=== PATIENT | male | born 1950 | race Hispanic/Latino ===

== ENCOUNTER → 2018-05-19 | Day surgery (SDC) | payer MEDICARE ==
[2018-05-16 11:26] LABS: BASOPHILS % 0.7 % (0.0-1.0); EOSINOPHILS # (AUTO) 0.1 (0.0-0.4); EOSINOPHILS % 1.7 % (0.0-6.0); HEMOGLOBIN 15.1 g/dL (14.0-18.0); LYMPHOCYTES # (AUTO) 1.4 (1.0-3.2); LYMPHOCYTES % 26.4 % (18.0-39.1); MEAN CORPUSCULAR HEMOGLOBIN 32.9 pg (28-32); MEAN CORPUSCULAR HGB CONC 35.1 g/dL (31-35); MEAN CORPUSCULAR VOLUME 93.7 fL (81-99); MONOCYTES # (AUTO) 0.4 (0.2-0.8); MONOCYTES % 7.9 % (4.4-11.3); NEUTROPHILS # (AUTO) 3.4 (2.1-6.9); NEUTROPHILS % 62.9 % (38.7-80.0); PLATELET COUNT 164 x10e3/uL (140-360); RED BLOOD COUNT 4.59 x10e6/uL (4.3-5.7); RED CELL DISTRIBUTION WIDTH 13.2 % (11.7-14.4)
[~2018-05-19] MED LIST: ATORVASTATIN CA20 MG PO; FENTANYL CITRATE/PF 100MCG/2 ML INJ ONE; FLOMAX0.4 MG PO; LIDOCAINE HCL 2% LOCAL INJ 5 ML SDV VIAL INJ ONE; MIDAZOLAM HCL 2 MG/2 ML VIAL ONE; PROPOFOL IV EMULSION 10 MG/ML 50 ML VIAL ONE; VIT D2 PO
[2018-05-19 07:50] VITALS: BP 118/87
== END | disposition home or self-care (01) ==
LOC: OR 05:19
PROVIDERS: ATTEND Internal Medicine Gastroenterology
DX: Z12.11 Encounter for screening for malignant neoplasm of colon (principal); D12.2 Benign neoplasm of ascending colon; D12.3 Benign neoplasm of transverse colon; K64.8 Other hemorrhoids; Z71.3 Dietary counseling and surveillance; E66.9 Obesity, unspecified; Z01.810 Encounter for preprocedural cardiovascular examination; Z01.812 Encounter for preprocedural laboratory examination; Z68.30 Body mass index [BMI] 30.0-30.9, adult
CPT/HCPCS: 36415; 45385; 85025; 93005; J2001; J2250

== ENCOUNTER → 2018-07-08 | Outpatient (CLI) | payer MEDICARE ==
[~2018-07-08] MED LIST changes: -FENTANYL CITRATE/PF 100MCG/2 ML INJ ONE; +IOPAMIDOL 370 MG/ML 200 ML INFUS..BTL INJ ONE; -LIDOCAINE HCL 2% LOCAL INJ 5 ML SDV VIAL INJ ONE; -MIDAZOLAM HCL 2 MG/2 ML VIAL ONE; -PROPOFOL IV EMULSION 10 MG/ML 50 ML VIAL ONE; +SODIUM CHLORIDE 0.9% 100 ML 100 ML ONE; +SODIUM CHLORIDE 0.9% 50ML 50 ML ONE
[2018-07-08 13:21] LABS: BLOOD UREA NITROGEN 16 mg/dL (7-26); BUN/CREATININE RATIO 19 (6-25); CREATININE, SERUM 0.85 mg/dL (0.72-1.25); EST GLOMERULAR FILTRATION RATE > 60 ML/MIN (60-)
--- NOTE | 2018-07-08 15:23 | Diagnostic Imaging Report ---
EXAM: CT Abdomen and Pelvis WITHOUT and WITH contrast INDICATION: \[id number] \S\[id number] \S\ASYMPTOMATIC MICROSCOPIC HEMATURIA COMPARISON: None. TECHNIQUE: Abdomen and pelvis were scanned utilizing a multidetector helical scanner from the lung base to the ischial tuberosities before and after administration of IV contrast. Coronal and sagittal reformations were obtained. Routine protocol was performed. Scan was performed when during portal venous phase. IV CONTRAST: 150 mL of Isovue-370 ORAL CONTRAST: Water RADIATION DOSE: Total DLP: 1620.5 mGy*cm Estimated effective dose: DLP x 0.015 mSv COMPLICATIONS: None FINDINGS: LINES and TUBES: None. LOWER CHEST: Right middle lobe calcified granuloma. Indeterminate 2 mm solid nodule in the right lower lobe, no follow-up needed. if high risk, CT chest can be obtained in 12 months. HEPATOBILIARY: No focal hepatic lesions. No biliary ductal dilation. GALLBLADDER: No radio-opaque stones or sludge. No wall thickening. SPLEEN: No splenomegaly. PANCREAS: No focal masses or ductal dilatation. ADRENALS: No adrenal nodules KIDNEYS/URETERS: Kidneys: Normal appearance bilaterally. No hydronephrosis or perinephric stranding. Cyst: None. Mass: None. Stones: None. Upper collecting systems: No irregularities or filling defects. Ureters: Fully opacified and normal in appearance. Bladder: No mass or filling defects. Mild protrusion of the prostate into the base of the urinary bladder. GI TRACT: No abnormal distention, wall thickening, or evidence of bowel obstruction. Appendix is normal. PELVIC ORGANS/BLADDER: The prostate is prominent with lobulated appearance especially in the anterior aspect, measuring 4.0 x 4.4 cm. LYMPH NODES: No lymphadenopathy. VESSELS: Mild atherosclerotic calcifications of the abdominal aorta without aneurysm. PERITONEUM / RETROPERITONEUM: No free air or fluid. BONES: Mild multilevel degenerative changes of the lumbar spine. SOFT TISSUES: Moderate size fat-containing left inguinal hernia. IMPRESSION: 1. Mildly heterogeneous and lobulated appearance of the prostate. Recommend further workup for hyperplasia and/or neoplasm. 2. Otherwise, unremarkable CT of the abdomen and pelvis. Specifically, no nephrolithiasis, hydronephrosis, or renal masses. Signed by: Dr. Randa Yates M.D. on 07/08/2018 3:20 PM
== END ==
LOC: CT 12:19
PROVIDERS: ATTEND Urology
DX: R31.21 Asymptomatic microscopic hematuria (principal)
CPT/HCPCS: 36415; 74178; 82565; 84520; Q9967

== ENCOUNTER → 2018-07-13 | Day surgery (SDC) | payer MEDICARE ==
[2018-07-12 11:38] LABS: BASOPHILS % 0.6 % (0.0-1.0); EOSINOPHILS # (AUTO) 0.1 (0.0-0.4); EOSINOPHILS % 1.5 % (0.0-6.0); HEMATOCRIT 47.1 % (38.2-49.6); HEMOGLOBIN 16.2 g/dL (14.0-18.0); LYMPHOCYTES # (AUTO) 1.4 (1.0-3.2); LYMPHOCYTES % 26.5 % (18.0-39.1); MEAN CORPUSCULAR HEMOGLOBIN 32.3 pg (28-32); MEAN CORPUSCULAR HGB CONC 34.4 g/dL (31-35); MEAN CORPUSCULAR VOLUME 93.8 fL (81-99); MONOCYTES # (AUTO) 0.4 (0.2-0.8); MONOCYTES % 8.2 % (4.4-11.3); NEUTROPHILS # (AUTO) 3.3 (2.1-6.9); NEUTROPHILS % 62.8 % (38.7-80.0); PLATELET COUNT 158 x10e3/uL (140-360); RED BLOOD COUNT 5.02 x10e6/uL (4.3-5.7); RED CELL DISTRIBUTION WIDTH 12.7 % (11.7-14.4)
--- NOTE | 2018-07-12 12:13 | Diagnostic Imaging Report ---
EXAMINATION: CHEST 2 VIEWS INDICATION: Enlarged prostate. Preop for surgery COMPARISON: CT scan 07/08/2018 FINDINGS: TUBES and LINES: None. LUNGS: Lungs are well inflated. Calcified granuloma in the right lower lung. There is no evidence of pneumonia or pulmonary edema. PLEURA: No pleural effusion or pneumothorax. HEART AND MEDIASTINUM: The cardiomediastinal silhouette is unremarkable. BONES AND SOFT TISSUES: No acute osseous lesion. Soft tissues are unremarkable. UPPER ABDOMEN: No free air under the diaphragm. IMPRESSION: No acute thoracic abnormality. Signed by: Dr. Dany Munguia M.D. on 07/12/2018 12:10 PM
[~2018-07-13] MED LIST changes: +CEFTRIAXONE SOD 1 GM VIAL ONE; +DESFLURANE 240 ML BTL INH ONE; +DEXAMETHASONE SOD PHOS INJ 4 MG/ML VIAL ONE; +EPHEDRINE SULFATE INJ 50 MG/10 ML SYR ONE; +FENTANYL CITRATE/PF 100MCG/2 ML INJ ONE; +GENTAMICIN 80MG/NS 100 ML 200 ML IV ONE; -IOPAMIDOL 370 MG/ML 200 ML INFUS..BTL INJ ONE; +IOPAMIDOL 610MG/1ML 300 MG/ML VIAL IV ONE; +LIDOCAINE HCL 2% LOCAL INJ 5 ML SDV VIAL INJ ONE; +MIDAZOLAM HCL 2 MG/2 ML VIAL ONE; +ONDANSETRON HCL INJ 2 MG/ML VIAL ONE; +PROPOFOL IV EMULSION 10 MG/ML 20 ML VIAL ONE; -SODIUM CHLORIDE 0.9% 100 ML 100 ML ONE; -SODIUM CHLORIDE 0.9% 50ML 50 ML ONE
--- OUTSIDE RECORDS SUMMARY | 2018-07-13 06:50 | XMS REPORT ---
Author [facility] Address Unknown Phone Unavailable Care Team Providers Care Cellar Packer Name Role Phone BRENDON REYNA Unavailable Unavailable Problems This patient has no known problems. Allergies, Adverse Reactions, Alerts This patient has no known allergies or adverse reactions. Medications This patient has no known medications. Results Test Description Test Time Test Comments Text Results Atomic Results Result Comments CHEST 2 VIEWS 2018-07-12 12:08:00 [place] [address] Patient Name: TONYA WARD MR #: [id number] : 1950 Age/Sex: 67/M Req #: [id number] [facility] Physician: Ordered by: BRENDON REYNA MD Report #: [id number] Location: OR Room/Bed: Procedure: [id number] DX/CHEST 2 VIEWS Exam Date: 07/12/18 Exam Time: 1125 REPORT STATUS: Signed EXAMINATION: CHEST 2 VIEWS INDICATION: Enlarged prostate. Preop for surgery COMPARISON: CT scan 07/08/2018 FINDINGS: TUBES and LINES: None. LUNGS: Lungs are well inflated. Calcified granuloma in the right lower lung. There is no evidence of pneumonia or pulmonary edema. PLEURA: No pleural effusion or pneumothorax. HEART AND MEDIASTINUM: The cardiomediastinal silhouette is unremarkable. BONES AND SOFT TISSUES: No acute osseous lesion. Soft tissues are unremarkable. UPPER ABDOMEN: No free air under the diaphragm. IMPRESSION: No acute thoracic abnormality. Signed by: Dr. Dany Munguia M.D. on 07/12/2018 12:10 PM Dictated By: DANY MUNGUIA MD, MD 1210 Transcribed By: MARTI on 07/12/18 1210 COPY TO: BRENDON REYNA MD CT ABDOMEN/PELVIS WOW 2018-07-08 15:13:00 [place] [address] Patient Name: TONYA WARD MR #: [id number] : 1950 Age/Sex: 67/M Req #: [id number] Adm Physician: Ordered by: BRENDON REYNA MD Report #: [id number] Location: CT Room/Bed: Procedure: [id number] CT/CT ABDOMEN/PELVIS WOW Exam Date: 07/08/18 Exam Time: 1405 REPORT STATUS: Signed EXAM: CT Abdomen and Pelvis WITHOUT and WITH contrast INDICATION: COMPARISON: None. TECHNIQUE: Abdomen and pelvis were scanned utilizing a multidetector helical scanner from the lung base to the ischial tuberosities before and after administration of IV contrast. Coronal and sagittal reformations were obtained. Routine protocol was performed. Scan was performed when during portal venous phase. IV CONTRAST: 150 mL of Isovue-370 ORAL CONTRAST: Water RADIATION DOSE: Total DLP: 1620.5 mGy*cm Estimated effective dose: DLP x 0.015 mSv COMPLICATIONS: None FINDINGS: LINES and TUBES: None. LOWER CHEST: Right middle lobe calcified granuloma. Indeterminate 2 mm solid nodule in the right lower lobe, no follow-up needed. if high risk, CT chest can be obtained in 12 months. HEPATOBILIARY: No focal hepatic lesions. No biliary ductal dilation. GALLBLADDER: No radio-opaque stones or sludge. No wall thickening. SPLEEN: No splenomegaly. PANCREAS: No focal masses or ductal dilatation. ADRENALS: No adrenal nodules KIDNEYS/URETERS: Kidneys: Norm al appearance bilaterally. No hydronephrosis or perinephric stranding. Cyst: None. Mass: None. Stones: None. Upper collecting systems: No irregularities or filling defects. Ureters: Fully opacified and normal in appearance. Bladder: No mass or filling defects. Mild protrusion of the prostate into the base of the urinary bladder. GI TRACT: No abnormal distention, wall thickening, or evidence of bowel obstruction. Appendix is normal. PELVIC ORGANS/BLADDER: The prostate is prominent with lobulated appearance especially in the anterior aspect, measuring 4.0 x 4.4 cm. LYMPH NODES: No lymphadenopathy. VESSELS: Mild atherosclerotic calcifications of the abdominal aorta without aneurysm. PERITONEUM / RETROPERITONEUM: No free air or fluid. BONES: Mild multilevel degenerative changes of the lumbar spine. SOFT TISSUES: Moderate size fat- containing left inguinal hernia. IMPRESSION: 1. Mildly heterogeneous and lobulated appearance of the prostate. Recommend further workup for hyperplasia and/or neoplasm. 2. Otherwise, unremarkable CT of the abdomen and pelvis. Specifically, no nephrolithiasis, hydronephrosis, or renal masses. Signed by: Dr. Ivan Huerta M.D. on 07/08/2018 3:20 PM Dictated By: IVAN HUERTA MD 1520 Transcribed By: MARTI on 07/08/18 1520 COPY TO: BRENDON REYNA MD
[2018-07-13 14:10] VITALS: BP 139/84
--- NOTE | 2018-09-01 01:04 | Operative Report ---
DATE OF PROCEDURE: July 13, 2018 PREOPERATIVE DIAGNOSES: 1. Obstructive benign prostatic hypertrophy. 2. Microhematuria. POSTOPERATIVE DIAGNOSES: 1. Obstructive benign prostatic hypertrophy. 2. Microhematuria. OPERATIONS PERFORMED: 1. Cystourethroscopy with bilateral ureteral catheterization and retrograde ureteropyelography (separate procedure performed for the microhematuria). 2. Interpretation of retrograde ureteropyelography. 3. Supervision of fluoroscopy, no radiologist present. 4. Cystourethroscopy with transurethral implantation of UroLift implants x4. ANESTHESIA: General. COMPLICATIONS: None. CLINICAL SUMMARY: Alf Arellano is a 67-year-old man with the above preoperative diagnoses. He is brought for the above procedures. He is aware of the risks of bleeding, infection, injury to adjacent structures, need for additional procedures, and elected to proceed. OPERATIVE PROCEDURE IN DETAIL: Informed consent was verified. Alf Arellano was properly identified, taken to the operating room, placed on the cystoscopy table in supine position. Anesthesia was uneventfully begun, and a 22.5-Spanish cystoscope sheath with the visual obturator in place was atraumatically inserted into patient's urethra. It was guided down the unremarkable urethra, through the normal sphincteric region, into the prostate bed. The prostate bed was obstructed by bilobar prostatic hypertrophy. There was a median lobe noted, but it was not intravesical. It appeared to not be significantly involved. Panendoscopy of the urinary bladder revealed grade 1 to 2 trabeculations, but no tumors, no stones, and no diverticula. Normally positioned and configured ureteral orifices were identified. A ureteral catheter was used to cannulate each ureter, and retrograde ureteral pyelograms were performed. Interpretation of retrograde ureteropyelography: Contrast was instilled in retrograde fashion bilaterally. There were no tumors, no stones, and no diverticula. Unobstructed drainage was observed bilaterally fluoroscopically. The cystoscope was withdrawn. The 20-Spanish cystoscope for the UroLift implants was then atraumatically inserted into the patient's bladder. We placed 4 UroLift implants. They were placed all anterolaterally, 2 were placed 1.5 cm distal to the bladder neck and 2 were placed at the level of verumontanum. This resulted in a continuous open channel anteriorly. However, the median lobe that was seemed to be insignificant preoperatively now was released due to lack of contact with the lateral lobes and now appeared to be bivalving following the UroLift implants. This raises a question of whether a transurethral resection of the prostate is needed at least of the median lobe. We will answer this question at followup appointments. The patient's bladder was drained. The cystoscope was withdrawn, and the patient was uneventfully reversed from anesthesia and taken to recovery room in stable condition. There were no complications to the procedure. He tolerated the procedure well. Explicit postop instructions were given, and we will follow the patient up in the office, at which point in time will perform uroflowmetry and bladder ultrasonography. Ongoing urological followup is a must. Job#: [id number]
== END | disposition home or self-care (01) ==
LOC: OR 06:46
PROVIDERS: ATTEND Urology
DX: N40.1 Benign prostatic hyperplasia with lower urinary tract symptoms (principal); N13.8 Other obstructive and reflux uropathy; R39.14 Feeling of incomplete bladder emptying; R35.1 Nocturia; R39.12 Poor urinary stream; N32.89 Other specified disorders of bladder; K21.9 Gastro-esophageal reflux disease without esophagitis; K40.40 Unilateral inguinal hernia, with gangrene, not specified as recurrent; E78.00 Pure hypercholesterolemia, unspecified; F17.200 Nicotine dependence, unspecified, uncomplicated; Z01.812 Encounter for preprocedural laboratory examination; Z01.818 Encounter for other preprocedural examination; Z79.82 Long term (current) use of aspirin; Z68.30 Body mass index [BMI] 30.0-30.9, adult
CPT/HCPCS: 52005; C9740; 36415; 71046; 74420; 85025; J0696; J1100; J1580; J2001; J2250; J2405; L8699

== ENCOUNTER 2019-05-04 08:45 | Observation (INO) | payer MEDICARE ==
--- NOTE | 2019-05-03 11:55 | Diagnostic Imaging Report ---
EXAMINATION: CHEST 2 VIEWS INDICATION: Pre-operative COMPARISON: Chest radiograph 07/12/2018 FINDINGS: LINES/TUBES:None LUNGS:The lungs are well-inflated. No focal consolidation or pulmonary edema. Unchanged chunky calcified right middle lobe granuloma. PLEURA:No pleural effusion or pneumothorax. MEDIASTINUM:The cardiomediastinal silhouette appears normal in size and shape. Atherosclerotic calcifications of the thoracic aorta. BONES/SOFT TISSUES:No acute osseous injury. ABDOMEN:No free air under the diaphragm. IMPRESSION: No focal pneumonia or pulmonary edema. Signed by: Miguel Begum MD on 05/03/2019 11:52 AM
[2019-05-03 12:35] LABS: BASOPHILS % 0.5 % (0.0-1.0); EOSINOPHILS # (AUTO) 0.1 (0.0-0.4); EOSINOPHILS % 1.9 % (0.0-6.0); HEMATOCRIT 41.1 % (38.2-49.6); HEMOGLOBIN 14.9 g/dL (14.0-18.0); LYMPHOCYTES # (AUTO) 1.2 (1.0-3.2); MEAN CORPUSCULAR HEMOGLOBIN 32.7 pg (28-32); MEAN CORPUSCULAR HGB CONC 36.3 g/dL (31-35); MEAN CORPUSCULAR VOLUME 90.3 fL (81-99); MONOCYTES # (AUTO) 0.4 (0.2-0.8); MONOCYTES % 8.7 % (4.4-11.3); NEUTROPHILS # (AUTO) 2.4 (2.1-6.9); NEUTROPHILS % 58.4 % (38.7-80.0); PLATELET COUNT 243 x10e3/uL (140-360); RED BLOOD COUNT 4.55 x10e6/uL (4.3-5.7); RED CELL DISTRIBUTION WIDTH 13.7 % (11.7-14.4)
[2019-05-03 12:38] LABS: INR 0.95; PROTHROMBIN TIME 13.2 seconds (11.9-14.5)
[2019-05-03 12:39] LABS: PARTIAL THROMBOPLASTIN TIME 35.5 seconds (23.8-35.5)
[2019-05-03 12:40] LABS: ANION GAP 13.1 mmol/L (8-16); BLOOD UREA NITROGEN 21 mg/dL (7-26); BUN/CREATININE RATIO 27 (6-25); CALCIUM 9.1 mg/dL (8.4-10.2); CARBON DIOXIDE 22 mmol/L (22-29); CHLORIDE 105 mmol/L (98-107); CREATININE, SERUM 0.77 mg/dL (0.72-1.25); EST GLOMERULAR FILTRATION RATE > 60 ML/MIN (60-); GLUCOSE 108 mg/dL (74-118); POTASSIUM 4.1 mmol/L (3.5-5.1); SODIUM 136 mmol/L (136-145)
[~2019-05-04] VITALS: Ht 175.3 cm; Wt 99.3 kg
[~2019-05-04 08:45] MED LIST changes: -CEFTRIAXONE SOD 1 GM VIAL ONE; -DESFLURANE 240 ML BTL INH ONE; -DEXAMETHASONE SOD PHOS INJ 4 MG/ML VIAL ONE; -EPHEDRINE SULFATE INJ 50 MG/10 ML SYR ONE; -FENTANYL CITRATE/PF 100MCG/2 ML INJ ONE; +FINASTERIDE5 MG PO; -GENTAMICIN 80MG/NS 100 ML 200 ML IV ONE; +IBUPROFEN400 MG PO; -IOPAMIDOL 610MG/1ML 300 MG/ML VIAL IV ONE; -LIDOCAINE HCL 2% LOCAL INJ 5 ML SDV VIAL INJ ONE; -MIDAZOLAM HCL 2 MG/2 ML VIAL ONE; -ONDANSETRON HCL INJ 2 MG/ML VIAL ONE; +PEPSID PO; -PROPOFOL IV EMULSION 10 MG/ML 20 ML VIAL ONE; +TYLENOL WITH C1 EACH PO
[2019-05-04] MEDS ORDERED: CEFAZOLIN SOD 1 GM/NS 50ML 100 ML IV ONE (09:39)
[2019-05-04] MEDS ORDERED: THROMBIN FOR SOLN 5,000 UNIT VIAL ONE (09:43)
[2019-05-04] MEDS ORDERED: BACITRACIN 50,000 UNIT VIAL ONE (09:43)
[2019-05-04] MEDS ORDERED: BUPIVACAINE 0.5%/EPI 30 ML SDV INJ ONE (09:43)
[2019-05-04] MEDS ORDERED: DESFLURANE 240 ML BTL INH ONE (11:11)
[2019-05-04] MEDS ORDERED: ONDANSETRON HCL INJ 2MG/ML 2ML 2 MG/ML VIAL ONE (11:11)
[2019-05-04] MEDS ORDERED: ROCURONIUM BROMIDE 10 MG/ML 5ML VIAL ONE (11:11)
[2019-05-04] MEDS ORDERED: LIDOCAINE HCL 2% LOCAL INJ 5 ML SDV VIAL INJ ONE (11:11)
[2019-05-04] MEDS ORDERED: PROPOFOL IV EMULSION 10 MG/ML 20 ML VIAL ONE (11:11)
[2019-05-04] MEDS ORDERED: NEOSTIGMINE 5 MG/5ML SYR ONE (11:11)
[2019-05-04] MEDS ORDERED: GLYCOPYRROLATE INJ 1MG/ 5 ML SYR ONE (11:11)
[2019-05-04] MEDS ORDERED: DEXAMETHASONE SOD PHOS INJ 4 MG/ML VIAL ONE (11:11)
[2019-05-04] MEDS ORDERED: ACETAMINOPHEN 1000 MG/100 ML 100 ML IV ONE (12:01)
[2019-05-04] MEDS ORDERED: HYDROMORPHONE 2MG/ML 2 MG/ML ML IV PRN (12:30)
[2019-05-04] MEDS ORDERED: OXYCODONE/ACETAMINOPHEN 5-325 1 EACH TABLET PO PRN (12:30)
[2019-05-04] MEDS ORDERED: ONDANSETRON HCL INJ 2MG/ML 2ML 2 MG/ML VIAL IV PRN (12:30)
[2019-05-04] MEDS ORDERED: CEPACOL SORE THROAT LOZENGES PO PRN (12:30)
[2019-05-04] MEDS ORDERED: PROMETHAZINE HCL (IM) 25 MG/ML VIAL IM PRN (12:30)
[2019-05-04] MEDS ORDERED: IBUPROFEN 400 MG TAB PO PRN (12:30)
[2019-05-04] MEDS ORDERED: MAGNESIUM/ALUMINUM/SIMETHICONE 30 ML UDC PO PRN (12:30)
[2019-05-04] MEDS ORDERED: ACETAMINOPHEN 325 MG TAB PO PRN (12:30)
[2019-05-04] MEDS ORDERED: MORPHINE SULFATE 5 MG/ML VIAL IM PRN (12:30)
[2019-05-04] MEDS ORDERED: CARISOPRODOL 350 MG TAB PO PRN (12:30)
--- NOTE | 2019-05-04 14:00 | NUR ---
Received patient via stretcher. AAOX4 to time, person, place, situation. Respirations even and unlabored. Dressing to lower back clean, dry, and intact. Oriented patient to room. Instructed to use call light for assistance.
[2019-05-04 14:30] VITALS: BP 139/63
--- NOTE | 2019-05-04 14:37 | Diagnostic Imaging Report ---
EXAMINATION: SPINE 1 VW LUMBAR INDICATION: Localization COMPARISON: None FINDINGS: Intraoperative portable crosstable lateral radiograph of the lumbar spine demonstrates localization at the L4 vertebral body. Degenerative changes of the lumbar spine. IMPRESSION: Intraoperative localization at L4. Signed by: Miguel Begum MD on 05/04/2019 2:34 PM
--- NOTE | 2019-05-04 14:38 | Diagnostic Imaging Report ---
EXAMINATION: SPINE 1 VW LUMBAR INDICATION: Localization COMPARISON: None FINDINGS: Intraoperative portable crosstable lateral radiograph of the lumbar spine demonstrates localization at the level of L3-4. Degenerative changes of the lumbar spine. IMPRESSION: Intraoperative localization at L3-4. Signed by: Miguel Begum MD on 05/04/2019 2:35 PM
[2019-05-04] MEDS: LACTATED RINGER'S 1,000 ML IV SCH (14:52)
[2019-05-04] MEDS: FAMOTIDINE 20 MG TAB PO SCH (14:52)
[2019-05-04] MEDS: CEFAZOLIN SOD 1 GM/NS 50ML 50 ML IV SCH ×2 (14:52→21:20)
[2019-05-04 16:51] VITALS: BP 121/72
--- NOTE | 2019-05-04 17:42 | Operative Report ---
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 PROCEDURES: 1. Left L3-L4 laminotomy, medial facetectomy, and microsurgical lateral recess decompression, 91953. 2. Right L3-L4 lateral recess decompression through unilateral left-sided laminotomy, 17811. ANESTHESIA: General. INDICATIONS: The patient is a 68-year-old man, who presents with bilateral lateral recess stenosis at L3-L4, symptomatic with unilateral left-sided neurogenic claudication and leg pain. He was in the operating room for microsurgical decompression through unilateral left-sided approach. PROCEDURE IN DETAIL: After induction of anesthesia, the patient was placed on the operating table in prone position over Juan frame. Lumbar region was prepped and draped in sterile fashion. A preoperative x-ray was obtained. A small midline incision was created. Lumbar fascia was opened in left of midline and subperiosteal dissection was carried out to expose the left side of the spinous processes and lamina of L3 and L4 and the medial aspect of the hypertrophic L3-L4 facet joint. A second x-ray confirmed correct localization. The operating microscope was brought in. A high-speed drill equipped with yash bur was used to drill the inferior aspect of lamina of L3 and superior aspect of lamina of L4 and the medial rim of the L3-L4 hypertrophic facet joint. The markedly hypertrophic ligamentum flavum was resected from the left side of the dural sac and the left L4 nerve root, they were fully exposed and decompressed. The operating table was then tilted towards the right side. Under the operating microscope, the base of the spinous processes of L3 and L4 were drilled. The hypertrophic ligamentum flavum, extending to the right of midline was then carefully dissected from the undersurface of the corresponding lamina and resected in a piecemeal fashion with a 2 mm Kerrison rongeur as the dura was slightly displaced ventrally. This procedure was carried out from the midline towards the right side until the right L4 lateral recess was reached under the L3 and L4 lamina and fully decompressed through unilateral left-sided approach. Excellent decompression was thus achieved. The wound was copiously irrigated with bacitracin solution. Meticulous hemostasis was secured. A small piece of Gelfoam was placed in the left lateral recess for hemostasis. The wound was then closed in multiple layers with 0 and 2-0 Vicryl sutures. The skin was closed with 3-0 Monocryl sutures in subcuticular fashion. Steri-Strips and dressing were applied. The patient was awakened, extubated, and taken to postanesthesia care unit in stable condition. No intraoperative complications were encountered. Estimated blood loss was 10 mL. Alex Casper MD PP/MARISELA /[id number]
--- NOTE | 2019-05-04 18:56 | NUR ---
Received report from previous nurse. call light within reach. Patient in bed. at bedside
--- NOTE | 2019-05-04 19:00 | NUR ---
Report given to oncoming nurse of patient's status. No s/s of acute distress noted.
[2019-05-04] MEDS ORDERED: MIDAZOLAM HCL 2 MG/2 ML VIAL ONE (19:42)
[2019-05-04] MEDS ORDERED: MORPHINE SULFATE INJ 10 MG/ML ONE (19:42)
[2019-05-04] MEDS ORDERED: FENTANYL CITRATE/PF 100MCG/2 ML INJ ONE (19:42)
[2019-05-04 20:00] VITALS: BP 132/72
[2019-05-04] MEDS ORDERED: ZOLPIDEM TARTRATE 5 MG TAB PO PRN (21:00)
[2019-05-05] VITALS: BP 144/75
[2019-05-05 04:00] VITALS: BP 116/76
[2019-05-05] MEDS: LACTATED RINGER'S 1,000 ML IV SCH ×2 (04:04→04:57)
[2019-05-05] MEDS: CEFAZOLIN SOD 1 GM/NS 50ML 50 ML IV SCH (05:38)
--- NOTE | 2019-05-05 07:05 | NUR ---
GAVE REPORT TO ONCOMING NURSE. CALL LIGHT WITHIN REACH. PATIENT IN BED
--- NOTE | 2019-05-05 07:16 | NUR ---
RECEIVED PATIENT AWAKE RESTING IN BED NO SIGNS OF DISTRESS. BED LOW, WHEELS LOCKED, SIDE RAILS X2. CALL LIGHT IN REACH WILL CONTINUE TO MONITOR PATIENT.
[2019-05-05] MEDS ORDERED: NORCO 7.5-3251 EACH PO (07:28)
[2019-05-05] MEDS: FAMOTIDINE 20 MG TAB PO SCH (07:30)
[2019-05-05 08:00] VITALS: BP 125/71
[2019-05-05] MEDS ORDERED: ONDANSETRON HCL 4 MG ORAL DISINTEGRATING TAB PO PRN (08:00)
--- NOTE | 2019-05-05 08:15 | NUR ---
REMOVED PATIENTS IV, CATHETER TIP INTACT ON REMOVAL AND PRESSURE DRESSING APPLIED.
[2019-05-05 08:28] VITALS: BP 125/71
[2019-05-05] MEDS ORDERED: TAMSULOSIN HCL 0.4 MG CAP PO SCH (09:00)
[2019-05-05] MEDS ORDERED: FINASTERIDE 5 MG TAB PO SCH (09:00)
--- NOTE | 2019-05-05 09:31 | NUR ---
PATIENT DISCHARGED FROM FACILITY. PATIENT GATHERED ALL PERSONAL BELONGINGS, DISCHARGE INSTRUCTIONS, AND FOLLOW UP INFORMATION. LEFT UNIT IN WHEELCHAIR AND WENT HOME VIA PRIVATE AUTO. NO SIGNS OF DISTRESS WHEN LEAVING FACILITY.
--- NOTE | 2019-05-05 10:29 | NUR ---
EDUCATED ABOUT GERBER, SIGNED, FILED IN CHART, WITH COPY LEFT WITH FAMILY AT BEDSIDE. SPOKE
== END 2019-05-05 09:31 | disposition home or self-care (01) ==
LOC: OR 08:45 → PACU V 12:19 → MED/SURG 14:04
PROVIDERS: ADMIT Neurological Surgery; ATTEND Neurological Surgery
DX: M48.062 Spinal stenosis, lumbar region with neurogenic claudication (principal); Z01.810 Encounter for preprocedural cardiovascular examination; Z01.812 Encounter for preprocedural laboratory examination; Z01.811 Encounter for preprocedural respiratory examination; I10 Essential (primary) hypertension; K21.9 Gastro-esophageal reflux disease without esophagitis; N40.0 Benign prostatic hyperplasia without lower urinary tract symptoms; Z96.0 Presence of urogenital implants
CPT/HCPCS: 36415; 63047; 63048; 71046; 72020; 80048; 85025; 85610; 85730; 86850; 86900; 88304; 93005; G0378 ×2; J0131; J0690 ×2; J1100; J2001; J2250; J2270; J2405; J2704; J3010; J3490; J7121 ×2

== ENCOUNTER 2024-08-02 06:56 | Inpatient (IN) | payer MEDICARE ==
[2024-07-31 11:37] LABS: BASOPHILS % 0.4 % (0.0-1.0); EOSINOPHILS # (AUTO) 0.1 (0.0-0.4); EOSINOPHILS % 2.1 % (0.0-6.0); HEMATOCRIT 44.2 % (38.2-49.6); HEMOGLOBIN 14.7 g/dL (14.0-18.0); LYMPHOCYTES # (AUTO) 1.3 (1.0-3.2); LYMPHOCYTES % 25.4 % (18.0-39.1); MEAN CORPUSCULAR HEMOGLOBIN 32.3 pg (28-32); MEAN CORPUSCULAR HGB CONC 33.3 g/dL (31-35); MEAN CORPUSCULAR VOLUME 97.1 fL (81-99); MONOCYTES # (AUTO) 0.3 (0.2-0.8); MONOCYTES % 6.6 % (4.4-11.3); NEUTROPHILS # (AUTO) 3.3 (2.1-6.9); NEUTROPHILS % 65.3 % (38.7-80.0); PLATELET COUNT 160 x10e3/uL (140-360); RED BLOOD COUNT 4.55 x10e6/uL (4.3-5.7); RED CELL DISTRIBUTION WIDTH 12.8 % (11.7-14.4); WHITE BLOOD COUNT 5.12 x10e3/uL (4.8-10.8)
[2024-07-31 11:58] LABS: ANION GAP 13.1 mmol/L (8-16); CALCIUM 9.2 mg/dL (8.4-10.2); CREATININE, SERUM 0.99 mg/dL (0.72-1.25); POTASSIUM 4.1 mmol/L (3.5-5.1)
[~2024-08-02] VITALS: Ht 177.8 cm; Wt 105.2 kg
[~2024-08-02 06:56] MED LIST changes: +NORCO 7.5-3251 EACH PO
[2024-08-02] MEDS: CEFTRIAXONE 1 GM VIAL ONE ×2 (07:45→12:41)
[2024-08-02] MEDS: SODIUM CHLORIDE 0.9% 1000ML 1,000 ML ONE (07:45)
[2024-08-02] MEDS: GENTAMICIN 80MG/NS 100 ML 200 ML IV ONE (07:51)
[2024-08-02] MEDS ORDERED: FENTANYL CITRATE/PF 100MCG/2 ML INJ ONE (08:25)
[2024-08-02] MEDS ORDERED: PROPOFOL IV EMULSION 10 MG/ML 20 ML VIAL ONE (08:25)
[2024-08-02] MEDS ORDERED: LIDOCAINE HCL 2% LOCAL INJ 5 ML SDV VIAL INJ ONE (08:25)
[2024-08-02] MEDS ORDERED: IOPAMIDOL 610MG/1ML 300 MG/ML VIAL IV ONE (09:17)
[2024-08-02] MEDS ORDERED: DIPHENHYDRAMINE HCL 25 MG CAP PO PRN (11:45)
[2024-08-02] MEDS ORDERED: ONDANSETRON HCL INJ 2MG/ML 2ML 2 MG/ML VIAL IV PRN (11:45)
[2024-08-02] MEDS: ACETAMINOPHEN/CODEINE 300MG - 30MG TAB PO PRN (11:55)
[2024-08-02] MEDS: PHENAZOPYRIDINE HCL 100 MG TAB PO PRN (11:55)
[2024-08-02 12:02] LABS: BASOPHILS % 0.3 % (0.0-1.0); EOSINOPHILS % 0.5 % (0.0-6.0); HEMATOCRIT 45.3 % (38.2-49.6); HEMOGLOBIN 14.8 g/dL (14.0-18.0); LYMPHOCYTES % 16.4 % (18.0-39.1); MEAN CORPUSCULAR HEMOGLOBIN 32.1 pg (28-32); MEAN CORPUSCULAR HGB CONC 32.7 g/dL (31-35); MEAN CORPUSCULAR VOLUME 98.3 fL (81-99); MONOCYTES # (AUTO) 0.1 (0.2-0.8); MONOCYTES % 2.2 % (4.4-11.3); NEUTROPHILS # (AUTO) 4.7 (2.1-6.9); NEUTROPHILS % 80.4 % (38.7-80.0); PLATELET COUNT 152 x10e3/uL (140-360); RED BLOOD COUNT 4.61 x10e6/uL (4.3-5.7); RED CELL DISTRIBUTION WIDTH 12.7 % (11.7-14.4); WHITE BLOOD COUNT 5.85 x10e3/uL (4.8-10.8)
[2024-08-02 12:27] LABS: ANION GAP 15.2 mmol/L (8-16); CALCIUM 8.5 mg/dL (8.4-10.2); CREATININE, SERUM 0.9 mg/dL (0.72-1.25); POTASSIUM 4.2 mmol/L (3.5-5.1)
[2024-08-02 12:42] VITALS: BP 143/86; PULSE 83; RESP 17; TEMP 97.7; O2SAT 100
[2024-08-02] MEDS: SODIUM CHLORIDE 0.9% 1000ML 1,000 ML IV SCH (13:00)
[2024-08-02 13:15] VITALS: BP 143/86; PULSE 83; RESP 17; TEMP 97.7; O2SAT 100
[2024-08-02 14:57] VITALS: PULSE 91; O2SAT 95
[2024-08-02 16:30] VITALS: BP 141/79; PULSE 88; RESP 18; TEMP 98.4; O2SAT 98
[2024-08-02] MEDS ORDERED: DOCUSATE SODIUM 100 MG CAP PO SCH (17:00)
[2024-08-02] MEDS ORDERED: SENNA-S TABLET PO SCH (17:00)
[2024-08-02] MEDS ORDERED: ACID REDUCER C1 EACH PO (17:39)
[2024-08-02 20:00] VITALS: BP 122/71; PULSE 78; RESP 18; TEMP 98.4; O2SAT 97
[2024-08-02 20:20] VITALS: PULSE 81; RESP 16; O2SAT 96
[2024-08-02] MEDS: DOCUSATE SODIUM 100 MG CAP PO SCH (20:32)
[2024-08-02] MEDS: SENNA-S TABLET PO SCH (20:32)
[2024-08-03] VITALS (10 sets, daily range): BP systolic 109–122; BP diastolic 70–95; PULSE 71–80; RESP 16–20; TEMP 97.8–98.4; O2SAT 95–100
[2024-08-03] MEDS ORDERED: LIDOCAINE HCL 2% LOCAL INJ 5 ML SDV VIAL INJ ONE ×2 (01:12→02:16)
[2024-08-03] MEDS ORDERED: FENTANYL CITRATE/PF 100MCG/2 ML INJ ONE ×3 (01:12→02:16)
[2024-08-03] MEDS ORDERED: PROPOFOL IV EMULSION 10 MG/ML 20 ML VIAL ONE ×3 (01:13→02:17)
[2024-08-03] MEDS ORDERED: EPHEDRINE SULFATE INJ 50 MG/ML VIAL ONE (01:26)
[2024-08-03] MEDS ORDERED: SEVOFLURANE INHAL SOLN 250 ML PEN BTL ONE (01:35)
[2024-08-03] MEDS ORDERED: ACETAMINOPHEN 1000 MG/100 ML 100 ML IV ONE (01:37)
[2024-08-03] MEDS ORDERED: PHENYLEPHRINE HCL 1% 10 MG/ML VIAL ONE (02:12)
[2024-08-03] MEDS ORDERED: SODIUM CHLORIDE 0.9% 100 ML ONE (02:13)
[2024-08-03] MEDS ORDERED: SODIUM CHLORIDE 0.9% 1000ML 1,000 ML ONE (02:38)
[2024-08-03 05:32] LABS: BASOPHILS % 0.1 % (0.0-1.0); EOSINOPHILS % 0.2 % (0.0-6.0); HEMATOCRIT 41.2 % (38.2-49.6); HEMOGLOBIN 13.7 g/dL (14.0-18.0); LYMPHOCYTES # (AUTO) 1.5 (1.0-3.2); LYMPHOCYTES % 14.4 % (18.0-39.1); MEAN CORPUSCULAR HEMOGLOBIN 32.5 pg (28-32); MEAN CORPUSCULAR HGB CONC 33.3 g/dL (31-35); MEAN CORPUSCULAR VOLUME 97.6 fL (81-99); MONOCYTES # (AUTO) 0.9 (0.2-0.8); MONOCYTES % 8.4 % (4.4-11.3); NEUTROPHILS # (AUTO) 7.8 (2.1-6.9); NEUTROPHILS % 76.6 % (38.7-80.0); PLATELET COUNT 149 x10e3/uL (140-360); RED BLOOD COUNT 4.22 x10e6/uL (4.3-5.7); RED CELL DISTRIBUTION WIDTH 12.7 % (11.7-14.4); WHITE BLOOD COUNT 10.17 x10e3/uL (4.8-10.8)
[2024-08-03 05:59] LABS: ANION GAP 12.3 mmol/L (8-16); CALCIUM 8.6 mg/dL (8.4-10.2); CREATININE, SERUM 0.82 mg/dL (0.72-1.25); POTASSIUM 4.3 mmol/L (3.5-5.1)
[2024-08-03] MEDS: FINASTERIDE 5 MG TAB PO SCH (16:30)
[2024-08-03] MEDS: TAMSULOSIN HCL 0.4 MG CAP PO SCH (17:00)
[2024-08-04] VITALS (8 sets, daily range): BP systolic 108–123; BP diastolic 67–76; PULSE 73–86; RESP 18–21; TEMP 97.9–98.6; O2SAT 96–100
[2024-08-04 05:27] LABS: BASOPHILS % 0.3 % (0.0-1.0); EOSINOPHILS # (AUTO) 0.1 (0.0-0.4); EOSINOPHILS % 0.6 % (0.0-6.0); HEMATOCRIT 40.5 % (38.2-49.6); HEMOGLOBIN 13.2 g/dL (14.0-18.0); LYMPHOCYTES # (AUTO) 1.5 (1.0-3.2); LYMPHOCYTES % 19.1 % (18.0-39.1); MEAN CORPUSCULAR HEMOGLOBIN 31.9 pg (28-32); MEAN CORPUSCULAR HGB CONC 32.6 g/dL (31-35); MEAN CORPUSCULAR VOLUME 97.8 fL (81-99); MONOCYTES # (AUTO) 0.7 (0.2-0.8); NEUTROPHILS # (AUTO) 5.6 (2.1-6.9); NEUTROPHILS % 70.6 % (38.7-80.0); PLATELET COUNT 138 x10e3/uL (140-360); RED BLOOD COUNT 4.14 x10e6/uL (4.3-5.7)
[2024-08-04 05:47] LABS: ANION GAP 11.7 mmol/L (8-16); CALCIUM 8.2 mg/dL (8.4-10.2); CREATININE, SERUM 0.8 mg/dL (0.72-1.25); POTASSIUM 3.7 mmol/L (3.5-5.1)
[2024-08-05] VITALS (9 sets, daily range): BP systolic 121–129; BP diastolic 73–85; PULSE 67–91; RESP 15–18; TEMP 97.4–98.4; O2SAT 95–100
[2024-08-05 06:05] LABS: BASOPHILS % 0.4 % (0.0-1.0); EOSINOPHILS # (AUTO) 0.1 (0.0-0.4); HEMATOCRIT 41.6 % (38.2-49.6); HEMOGLOBIN 13.9 g/dL (14.0-18.0); LYMPHOCYTES # (AUTO) 1.3 (1.0-3.2); LYMPHOCYTES % 17.4 % (18.0-39.1); MEAN CORPUSCULAR HEMOGLOBIN 32.6 pg (28-32); MEAN CORPUSCULAR HGB CONC 33.4 g/dL (31-35); MEAN CORPUSCULAR VOLUME 97.4 fL (81-99); MONOCYTES # (AUTO) 0.6 (0.2-0.8); MONOCYTES % 8.5 % (4.4-11.3); NEUTROPHILS # (AUTO) 5.3 (2.1-6.9); NEUTROPHILS % 72.3 % (38.7-80.0); PLATELET COUNT 140 x10e3/uL (140-360); RED BLOOD COUNT 4.27 x10e6/uL (4.3-5.7); WHITE BLOOD COUNT 7.31 x10e3/uL (4.8-10.8)
[2024-08-05 06:35] LABS: ANION GAP 12.9 mmol/L (8-16); CALCIUM 8.7 mg/dL (8.4-10.2); CREATININE, SERUM 0.72 mg/dL (0.72-1.25); POTASSIUM 3.9 mmol/L (3.5-5.1)
[2024-08-06] VITALS: BP 133/79; PULSE 72; RESP 18; TEMP 98.1; O2SAT 100
[2024-08-06 04:00] VITALS: BP 125/78; PULSE 75; RESP 17; TEMP 98; O2SAT 99
[2024-08-06 07:31] LABS: BASOPHILS % 0.7 % (0.0-1.0); EOSINOPHILS # (AUTO) 0.1 (0.0-0.4); EOSINOPHILS % 1.2 % (0.0-6.0); HEMATOCRIT 43.3 % (38.2-49.6); HEMOGLOBIN 14.5 g/dL (14.0-18.0); LYMPHOCYTES # (AUTO) 1.4 (1.0-3.2); LYMPHOCYTES % 25.1 % (18.0-39.1); MEAN CORPUSCULAR HEMOGLOBIN 32.3 pg (28-32); MEAN CORPUSCULAR HGB CONC 33.5 g/dL (31-35); MEAN CORPUSCULAR VOLUME 96.4 fL (81-99); MONOCYTES # (AUTO) 0.5 (0.2-0.8); MONOCYTES % 8.4 % (4.4-11.3); NEUTROPHILS # (AUTO) 3.7 (2.1-6.9); NEUTROPHILS % 64.1 % (38.7-80.0); PLATELET COUNT 165 x10e3/uL (140-360); RED BLOOD COUNT 4.49 x10e6/uL (4.3-5.7); RED CELL DISTRIBUTION WIDTH 12.7 % (11.7-14.4); WHITE BLOOD COUNT 5.74 x10e3/uL (4.8-10.8)
[2024-08-06 07:49] LABS: ANION GAP 12.8 mmol/L (8-16); CALCIUM 9.2 mg/dL (8.4-10.2); CREATININE, SERUM 0.87 mg/dL (0.72-1.25); POTASSIUM 3.8 mmol/L (3.5-5.1)
[2024-08-06 07:59] VITALS: PULSE 82; RESP 18; O2SAT 97
[2024-08-06 08:22] VITALS: BP 143/90; PULSE 88; RESP 18; TEMP 98.2; O2SAT 99
[2024-08-06 08:33] VITALS: BP 143/90; PULSE 88; RESP 18; TEMP 98.2; O2SAT 99
== END 2024-08-06 10:47 | disposition home or self-care (01) | DRG 709 ==
LOC: OR 06:56 → PACU V 11:35 → MED/SURG 12:37
PROVIDERS: ADMIT Urology; ATTEND Urology
PROC: 0VB Male Reproductive System, Excision (ICD-10-PCS; 2024-08-02)
PROC: 0T7D8ZZ Dilation of Urethra, Via Natural or Artificial Opening Endoscopic (ICD-10-PCS; 2024-08-02)
PROC: BT161ZZ Fluoroscopy of Right Ureter using Low Osmolar Contrast (ICD-10-PCS; 2024-08-02)
PROC: BT171ZZ Fluoroscopy of Left Ureter using Low Osmolar Contrast (ICD-10-PCS; 2024-08-02)
PROC: 0T9B70Z Drainage of Bladder with Drainage Device, Via Natural or Artificial Opening (ICD-10-PCS; 2024-08-02)
PROC: 0V508ZZ Destruction of Prostate, Via Natural or Artificial Opening Endoscopic (ICD-10-PCS; principal; 2024-08-02 09:19)
DX: N40.1 Benign prostatic hyperplasia with lower urinary tract symptoms (principal); N13.8 Other obstructive and reflux uropathy; R39.15 Urgency of urination; R31.0 Gross hematuria; N35.919 Unspecified urethral stricture, male, unspecified site; K21.9 Gastro-esophageal reflux disease without esophagitis; N41.9 Inflammatory disease of prostate, unspecified; N30.90 Cystitis, unspecified without hematuria; F17.200 Nicotine dependence, unspecified, uncomplicated; E66.9 Obesity, unspecified; Z68.33 Body mass index [BMI] 33.0-33.9, adult
CPT/HCPCS: 36415; 71046; 74420; 80048; 83735; 85025; 88302; 88305; 93005; 94799; J0696; J1580; J2003; J2371; J7030; J7050

== ENCOUNTER → 2025-03-06 | Outpatient (REF) | payer MEDICARE ==
[~2025-03-06] MED LIST changes: +ACID REDUCER C1 EACH PO
== END ==
LOC: US 12:46
PROVIDERS: ATTEND Urology
DX: N45.4 Abscess of epididymis or testis (principal); N50.819 Testicular pain, unspecified
CPT/HCPCS: 76870; 93976